=== PATIENT | female | born 1990 ===

== ENCOUNTER 2018-05-22 11:11 | Emergency (ER) | payer MEDICAID ==
[2018-05-22] MEDS ORDERED: METOCLOPRAMIDE 10 MG/2 ML VIAL IVP ONE (11:29)
[2018-05-22] MEDS ORDERED: NS 1,000 ML IV ONE ×2 (11:29→12:20)
--- NOTE | 2018-05-22 11:39 | EDPHY ---
H & P Stated Complaint: PT. states vomiting start aprox 0700 this am with diarrhea, chills Time Seen by Provider: 05/22/18 11:16 HPI/ROS: This patient describes multiple episodes of vomiting and loose watery diarrhea that started around 7 continue toe shortly prior to arrival with ongoing nausea. A co-worker drove her in for evaluation. She reports some lightheadedness while standing prior to arrival here. She reported bright red streaks of blood in her vomit the last time she vomited. She notes no blood in her stool. No dark tarry stools or coffee-ground emesis. She reports antecedent nasal congestion for 3 days prior to the onset of her GI symptoms. She notes no exacerbating factors for her vomiting diarrhea and she reports associated generalized abdominal cramping that is 8/10 intensity again with no exacerbating factors. ROS: Constitutional: No fevers. No other constitutional symptoms HEENT: Nasal congestion without sinus pain. Pulmonary: She had cough that resolved over the past week or so. No current coughing or shortness of breath. Cardiovascular: Orthostatics symptoms as described. No chest pain.\ GI: No abdominal distension. No focal area of pain in her belly. : No dysuria frequency urgency. Last menstrual period was 5 weeks ago which is not uncommon for her. No vaginal bleeding. No vaginal discharge. Integumentary: No rash Neuro: No complaints 10 point review of symptoms is performed and otherwise negative with exception of pertinent positives and negatives listed in HPI and ROS Source: Patient Exam Limitations: No limitations - Personal History LMP (Females 10-55): Extended Cycle BCP/Inj Current Tetanus Diphtheria and Acellular Pertussis (TDAP): Yes Tetanus Vaccine Date: 2014 - Medical/Surgical History Hx Asthma: No Hx Chronic Respiratory Disease: No Hx Diabetes: No Hx Cardiac Disease: No Hx Renal Disease: No Hx Cirrhosis: No Hx Alcoholism: No Hx HIV/AIDS: No Hx Splenectomy or Spleen Trauma: No Other PMH: MEd hx-none. Surg-none - Social History Smoking Status: Never smoked Alcohol Use: None Drug Use: Marijuana (Occasional marijuana use) - Physical Exam Exam: General Appearance: Pleasant female Alert, no distress. Eyes: Pupils equal and round no pallor or injection. ENT, Mouth: Mucous membranes moist. Respiratory: There are no retractions, lungs are clear to auscultation. Cardiovascular: Regular rate and rhythm. No murmur gallop or rub Gastrointestinal: Hypoactive bowel sounds with diffuse moderate tenderness without guarding or rebound. Neurological: GCS 15. Skin: Warm and dry, no rashes. Musculoskeletal: Neck is supple nontender. Extremities are symmetrical, full range of motion. Psychiatric: Mood and affect are normal DIFFERENTIAL DIAGNOSIS: After history and physical exam differential diagnosis was considered for viral gastroenteritis with associated cramping, dehydration couple appendicitis, UTI, ectopic Constitutional: Initial Vital Signs Temperature (C) 36.4 C 05/22/18 11:16 Heart Rate 85 05/22/18 11:16 Respiratory Rate 16 05/22/18 11:16 Blood Pressure 107/56 L 05/22/18 11:16 O2 Sat (%) 100 05/22/18 11:16 O2 Delivery Mode Room Air Allergies/Adverse Reactions: No Known Allergies Allergy (Verified 05/22/18 11:16) Home Medications: Medication Instructions Recorded Ondansetron Odt [Zofran Odt] 4 - 8 mg PO Q4PRN PRN #4 tab 05/22/18 Medical Decision Making - Diagnostics Imaging Results: Her pelvic ultrasound results of her positive urine dip test showed what appears to be an early gestational sac within the uterus per Radiology. She has no ovarian masses or other findings that would suggest ectopic . I discussed this with the radiologist Imaging: Discussed imaging studies w/ computer tech Radiologist ED Course/Re-evaluation: IV normal saline bolus Benadryl and Reglan for nausea, vomiting and abdominal cramping Discussion: Patient presents with findings consistent with viral gastroenteritis-URI symptoms accompanied by vomiting and diarrhea. Her last menstrual period was 5 weeks ago drinking test is positive for early intrauterine . She is well-hydrated after 2 L normal saline and nausea control with Zofran. I counseled her regarding her which she wishes to keep. Her significant other-boyfriend is also present at the bedside and they seem happy about the news of . She has no OBGYN physician also provided our hand roller engraver on-call for close follow-up. She understands need to return emergency department should she have significant recurrence of symptoms despite plan of light diet and hydration. - Data Points Laboratory Results: CBC basic metabolic panel are normal. Urinalysis is normal Urine is positive. Medications Given: Discontinued Medications Diphenhydramine HCl (Benadryl Injection) 25 mg IVP EDNOW ONE Stop: 05/22/18 11:30 Last Admin: 05/22/18 11:39 Dose: 25 mg Hyoscyamine Sulfate (Levsin, Hyomax-Sl) 0.125 mg PO EDNOW ONE Stop: 05/22/18 11:57 Last Admin: 05/22/18 11:58 Dose: 0.125 mg Hyoscyamine Sulfate (Levsin, Hyomax-Sl) 0.125 mg PO EDNOW ONE Stop: 05/22/18 13:30 Last Admin: 05/22/18 13:40 Dose: 0.125 mg Sodium Chloride (Ns) 1,000 mls @ 0 mls/hr IV ONCE ONE PRN Reason: Wide Open Stop: 05/22/18 11:30 Last Admin: 05/22/18 11:38 Dose: 1,000 mls Sodium Chloride (Ns) 1,000 mls @ 0 mls/hr IV ONCE ONE PRN Reason: Wide Open Stop: 05/22/18 12:21 Last Admin: 05/22/18 12:24 Dose: 1,000 mls Ketorolac Tromethamine (Toradol) 15 mg IVP EDNOW ONE Stop: 05/22/18 11:57 Last Admin: 05/22/18 12:02 Dose: 15 mg Metoclopramide HCl (Reglan Injection) 10 mg IVP EDNOW ONE Stop: 05/22/18 11:30 Last Admin: 05/22/18 11:48 Dose: 10 mg Ondansetron HCl (Zofran) 4 mg IVP EDNOW ONE Stop: 05/22/18 15:15 Last Admin: 05/22/18 15:27 Dose: 4 mg Point of Care Test Results: CBC CBC Collection Date 05/22/18 CBC Collection Time 11:30 WBC 9.6 RBC 4.78 HGB 14.4 HCT 41.4 PLT 325 Neut # 8.8 Neut 91.8 LYMPH # 0.5 LYMPH 4.7 Other WBC # 0.3 Other WBC 3.5 MCV 86.6 Chemistry 05/22/18 05/22/18 11:59 11:37 POC Sodium 139 mEq/L mEq/L 140 mEq/L mEq/L (135-145) (135-145) POC Potassium 3.7 mEq/L mEq/L 2.8 mEq/L L mEq/L (3.3-5.0) (3.3-5.0) POC Chloride 105 mEq/L mEq/L 102.0 mEq/L mEq/L (97-110) (97-110) POC Total CO2 21 mEq/L L mEq/L (22-31) POC BUN 10 mg/dL mg/dL 10 mg/dL mg/dL (7-23) (7-23) POC Creatinine 0.4 mg/dL L mg/dL 0.6 mg/dL mg/dL (0.6-1.0) (0.6-1.0) POC Glucose 84 mg/dL mg/dL 87 mg/dL mg/dL (70-100) (70-100) POC Calcium 9.2 mg/dL mg/dL (8.5-10.4) ISTAT H&H 05/22/18 11:59 POC Hgb 15.3 gm/dL gm/dL (12.6-16.3) POC Hct 45 % % (38-47) Urine Collection Date 05/22/18 Collection Time 13:25 HCG Results Positive Urine Dip Collection Date 05/22/18 Collection Time 13:25 Specific [place] (1.002-1.030) 1.000 PH (5.0-7.5) 7.0 Leukocytes (Negative) Trace Nitrites (Negative) Negative Protein (Negative) Negative Glucose (Negative) Negative Ketones (Negative) 4+ Urobilnogen (0.2-1.0 EU) 1.0 Bilirubin (Negative) Negative Blood (Negative) Negative Departure - Departure Disposition: Home, Routine, Self-Care Clinical Impression: Viral gastroenteritis, Generalized abdominal cramping, Dehydration, Intrauterine Condition: Good Instructions: (ED), Gastroenteritis (ED) Additional Instructions: Diagnosis: Viral gastroenteritis 2. Abdominal cramping 3. Dehydration 4. 1st trimester intrauterine Plan: Light diet until he feel improved-bananas, rice, applesauce, soup, toast and similar Zofran-under the tongue if needed for nausea or vomiting Return for any significant worsening despite treatment plan Make appointment follow up with OBGYN physician Follow-up with primary care physician for any ongoing symptoms that persist beyond the next few days. Return emergency department for any significant worsening despite treatment plan Referrals: Goodeill,Carlos, DO [Doctor of Osteopathy] - As per Instructions NONE *PRIMARY CARE P,. [Primary Care Provider] - As per Instructions Jeannine Holland MD [Medical Doctor] - As per Instructions Prescriptions: Ondansetron Odt [Zofran Odt] 4 - 8 mg PO Q4PRN PRN #4 tab PRN Reason: Vomiting
[2018-05-22] MEDS ORDERED: KETOROLAC 15 MG/1 ML SDV IVP ONE (11:56)
[2018-05-22] MEDS ORDERED: HYOSCYAMINE SULFATE 0.125 MG TAB PO ONE ×2 (11:56→13:29)
[2018-05-22] MEDS ORDERED: ONDANSETRON 4 MG/2 ML VIAL IVP ONE (15:14)
[2018-05-22 15:27] VITALS: BP 105/62
== END 2018-05-22 15:42 | disposition home or self-care (01) ==
LOC: CED 11:11
DX: Z32.01 Encounter for pregnancy test, result positive (principal); A08.4 Viral intestinal infection, unspecified; E86.0 Dehydration
CPT/HCPCS: 76856-PO; 80048-PO; 82435-PO; 82565-PO; 82947-PO; 84132-PO; 84295-PO; 84520-PO; 85014-PO; 96374; J1200; J1885; J2405; J2765